=== PATIENT | male | born 1985 | race African-American/Black ===

== ENCOUNTER 2017-11-02 20:44 | Emergency (ER) | payer SELFPAY ==
[~2017-11-02] VITALS: Ht 175.3 cm; Wt 81.6 kg
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
[2017-11-03 01:00] VITALS: BP 120/66
== END 2017-11-03 00:56 | disposition home or self-care (01) ==
LOC: ER 20:45
DX: F10.129 Alcohol abuse with intoxication, unspecified (principal); F12.929 Cannabis use, unspecified with intoxication, unspecified
CPT/HCPCS: 82962-TC; A4606; Z7610